=== PATIENT | female | born 1990 | race Caucasian/White ===

== ENCOUNTER 2020-01-03 18:22 | Emergency (ER) | payer BC ==
--- NOTE | 2020-01-03 18:42 | EDM.PDOC ---
ED HPI GENERAL MEDICAL PROBLEM - General Chief Complaint: Headache Stated Complaint: POSS HEAT STROKE Time Seen by Provider: 01/03/20 18:30 Source of Information: Reports: Patient, EMS History Limitations: Reports: Altered Mental Status - History of Present Illness INITIAL COMMENTS - FREE TEXT/NARRATIVE: Gabbie comes into [facility] ED by EMS following development of headache, confusional state, and weakness at work this early evening. 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 She felt baseline at beginning of work, but developed sxs 3 hours into shift. It is not known if she was consuming adequate fluids or had fans or other cooling devices available. Upon arrival, rectal temp 99 deg F, BP 133/82, RR 18, VR 82, 02 100% on RA. Speech was weak and raspy. She was orientated to person, place, and time. There were no focal neurologic deficits on exam. ED ROS GENERAL - Review of Systems Review Of Systems: Unable To Obtain Reason Not Obtained: generalized malaise ED EXAM, DIZZINESS - Physical Exam Exam: See Below Exam Limited By: Other (latency of responses, reported headache) General Appearance: Alert, WD/WN, Mild Distress, Obese Eye Exam: Bilateral Eye: EOMI, Normal Inspection, PERRL Ears: Normal External Exam, Normal Canal Nose: Normal Inspection Throat/Mouth: Normal Inspection, Normal Lips, No Airway Compromise, Other ( voice raspy, soft) Head Exam: Normocephalic Neck: Normal Inspection, Supple, Non-Tender Respiratory/Chest: No Respiratory Distress, Lungs Clear, No Accessory Muscle Use Cardiovascular: Regular Rate, Rhythm, No Murmur GI/Abdominal: Normal Bowel Sounds, Soft, Non-Tender, No Organomegaly, No Distention, No Mass (Female) Exam: Deferred Rectal (Female) Exam: Deferred Neurological: Alert, CN II-XII Intact, No Motor/Sensory Deficits, Oriented x 3 Back Exam: Normal Inspection Extremities: Normal Inspection Psychiatric: Flat Affect Skin Exam: Warm, Dry, Intact, Normal Color, No Rash Course - Orders/Labs/Meds Orders: Active Orders 24 hr Category Date Time Status CBC WITH AUTO DIFF [HEME] Stat Lab 01/03/20 18:30 Ordered COMPREHENSIVE METABOLIC PN,CMP [CHEM] Stat Lab 01/03/20 18:30 Ordered CPK [CREATINE KINASE,CK] [CHEM] Stat Lab 01/03/20 18:33 Ordered URINALYSIS W/MICROSCOPIC [UA W/MICROSCOPIC] [URIN] Stat Lab 01/03/20 18:30 Ordered Departure - Discharge Information Forms: ED Department Discharge - My Orders Last 24 Hours: My Active Orders 01/03/20 18:30 CBC WITH AUTO DIFF [HEME] Stat COMPREHENSIVE METABOLIC PN,CMP [CHEM] Stat URINALYSIS W/MICROSCOPIC [UA W/MICROSCOPIC] [URIN] Stat 01/03/20 18:33 CPK [CREATINE KINASE,CK] [CHEM] Stat - Assessment/Plan Last 24 Hours: My Active Orders 01/03/20 18:30 CBC WITH AUTO DIFF [HEME] Stat COMPREHENSIVE METABOLIC PN,CMP [CHEM] Stat URINALYSIS W/MICROSCOPIC [UA W/MICROSCOPIC] [URIN] Stat 01/03/20 18:33 CPK [CREATINE KINASE,CK] [CHEM] Stat
[2020-01-03] MEDS ORDERED: Sodium Chloride 0.9% 1,000 ML IV SCH ×2 (19:00→19:45)
[2020-01-03] MEDS ORDERED: Ketorolac 30 MG/ML SDV IVPUSH ONE (19:32)
[2020-01-03] MEDS ORDERED: Ondansetron 4 MG/2 ML SDV IVPUSH ONE (19:32)
--- NOTE | 2020-01-04 08:09 | ER ---
DATE SEEN: 01/03/2020 ADDENDUM: CHIEF COMPLAINT: Alteration of mental status. HISTORY OF PRESENT ILLNESS: A 29-year-old female who was brought in by ambulance, was seen by Dr. Escalona. Diagnosis of heat exhaustion was entertained. She was given fluids. She did complain that she had a headache most of the day, but had been working in very hot conditions and not drinking enough water. On my exam, she did not have any focal deficits or symptoms, except she was lethargic and slow to respond. Her vital signs were normal. LABORATORIES: Normal, including urine drug screen. FINAL IMPRESSION: 1. Heat exhaustion. 2. Migraine headache. PLAN: I gave her one more liter of normal saline, some ketorolac and Zofran, and discharged her home to see PCP in 24 hours. /[id number] ISABELA/NICOLLE
== END 2020-01-03 21:20 | disposition home or self-care (01) ==
LOC: FB.ED 18:22
DX: T67.5XXA Heat exhaustion, unspecified, initial encounter (principal); G43.909 Migraine, unspecified, not intractable, without status migrainosus
CPT/HCPCS: 36415; 80053; 80305; 81001; 82550; 85025; 96361; 96374; 96375; 99000; 99284; J1885; J2405; J7030